=== PATIENT | female | born 1985 | race Two or more races ===

== ENCOUNTER 2018-02-16 10:49 | Emergency (ER) | payer MEDICAID, OTHER ==
[~2018-02-16] VITALS: Ht 167.6 cm; Wt 48.0 kg
[2018-02-16 10:56] VITALS: BP 122/84
== END 2018-02-16 11:41 | disposition home or self-care (01) ==
LOC: ER 10:50
DX: Z00.00 Encounter for general adult medical examination without abnormal findings (principal); F15.90 Other stimulant use, unspecified, uncomplicated; Z60.2 Problems related to living alone; Z59.0 Homelessness
CPT/HCPCS: 99281